=== PATIENT | female | born 1965 | race Caucasian/White ===

== ENCOUNTER → 2017-08-29 | Outpatient (CLI) | payer OTHER ==
--- NOTE | 2017-08-30 07:09 | US ---
EXAMINATION TYPE: US transvaginal DATE OF EXAM: 08/29/2017 COMPARISON: CLINICAL HISTORY: N83.20 UNSPECIFIED OVARIAN CYST, RIGHT SIDE. History of right ovarian cyst. Partia l hysterectomy in 2004. TECHNIQUE: Transvaginal (TV) Date of LMP: Partial hysterectomy EXAM MEASUREMENTS: Uterus: Surgically absent cm Endometrial Stripe: Surgically absent cm Right Ovary: 2.7 x 1.3 x 1.0 cm Left Ovary: 2.5 x 1.5 x 1.7 cm 1. Uterus: Surgically absent 2. Endometrium: Surgically absent 3. Right Ovary: Appears heterogenous, small cystic appearing lesion that appears to be pedunculated from ovarian tissue= 0.6 cm 4. Left Ovary: Appears heterogenous. Spectral, color and waveform doppler imaging shows good arterial and venous flow within the ovaries ; there is no evidence for ovarian torsion. 5. Bilateral Adnexa: wnl 6. Posterior cul-de-sac: no free fluid IMPRESSION: 1. Post hysterectomy. There appears to be somewhat heterogeneous echo pattern to both ovaries with a nonspecific finding. There is a 6 mm pedunculated lesion extending from the right ovary. Lesion too s mall to characterize. Consider follow-up in 6 weeks for resolution.
--- NOTE | 2017-08-30 13:18 | MM ---
Reason for exam: screening (asymptomatic). Last mammogram was performed 1 year and 2 months ago. History: Patient history of other cancer. Family history of breast cancer in sister at age 62 and breast cancer in paternal aunt. Benign excisional biopsy of the right breast, 2002. Physical Findings: A clinical breast exam by your physician is recommended on an annual basis and results should be correlated with mammographic findings. MG Screening Mammo w CAD Bilateral CC and MLO view(s) were taken. Prior study comparison: July 06, 2016, bilateral MG screening mammo w CAD. March 11, 2009, mammogram, performed at [facility]. There are scattered fibroglandular densities. Finding: There are typically benign spherical calcifications in the right breast. Previous mammotome biopsy in the right breast. There is a chronic nodularity in the right breast. No significant changes in finding since July 06, 2016 and March 11, 2009. ASSESSMENT: Benign, BI-RAD 2 RECOMMENDATION: Routine screening mammogram of both breasts in 1 year.
== END | disposition home or self-care (01) ==
LOC: RADUSWWP 15:38
PROVIDERS: ATTEND Family Medicine
DX: Z12.31 Encounter for screening mammogram for malignant neoplasm of breast (principal); N83.8 Other noninflammatory disorders of ovary, fallopian tube and broad ligament; Z90.710 Acquired absence of both cervix and uterus
CPT/HCPCS: 76830; G0202

== ENCOUNTER → 2017-10-07 | Outpatient (CLI) | payer OTHER ==
--- NOTE | 2017-10-07 16:53 | US ---
EXAMINATION TYPE: US transvaginal DATE OF EXAM: 10/07/2017 COMPARISON: 08/29/2017 CLINICAL HISTORY: 52-year-old female N83.201 Unspecified Ovarian Cyst Right Side. Intermittent RLQ pa in and with intercourse; follow up on right ovarian cyst at 0.6cm; hysterectomy TECHNIQUE: Transvaginal (TV) Date of LMP: Hysterectomy FINDINGS: Uterus: surgically absent. A couple cervical nabothian cysts are demonstrated, largest measuring 9 mm . Right Ovary: 1.9 x 1.0 x 1.0 cm Left Ovary: 2.2 x 1.5 x 1.4 cm Ovaries are small in size. The previously seen exophytic 6 mm lesion on the right is no longer identi fied. No evident adnexal abnormality or cul-de-sac free fluid. IMPRESSION: 1. Status post hysterectomy. A couple nabothian cysts remain measuring up to 9 mm. 2. Previously seen 6 mm lesion in the right ovary is no longer identified. Both ovaries are small sug gesting postmenopausal state.
== END | disposition home or self-care (01) ==
LOC: RADUSWWP 12:38
PROVIDERS: ATTEND Family Medicine
DX: N88.8 Other specified noninflammatory disorders of cervix uteri (principal); Z90.710 Acquired absence of both cervix and uterus
CPT/HCPCS: 76830

== ENCOUNTER 2018-06-16 12:24 | Emergency (ER) | payer OTHER ==
[2018-06-16 12:41] VITALS: TEMP 98.2
[2018-06-16] MEDS ORDERED: IPRATROPIUM-ALBUTEROL 3 ML NEB INHALATION STA (14:43)
--- NOTE | 2018-06-16 14:50 | ED ---
General Adult HPI - General Chief complaint: Upper Respiratory Infection Stated complaint: Chest tightness/congestion Time Seen by Provider: 06/16/18 12:40 Source: patient, RN notes reviewed Mode of arrival: ambulatory Limitations: no limitations - History of Present Illness Initial comments: This is a 53-year-old female presents emergency Department with a four-day history of cough and some facial tenderness. Patient states she has a lot of postnasal drip and the symptoms have not been getting any better. Patient denies any fever chills per patient denies any chest pain. The patient mentioned chest tightness to triage she stated she was just having some wheezing to me and it was typical sensation with wheezing. Patient states she does have a sore throat occasionally but that seems to get better during the day and worse at night. Patient denies any abdominal pain patient denies nausea vomiting diarrhea. Patient denies any leg swelling or calf pain. - Related Data Home Medications Medication Instructions Recorded Confirmed Baclofen [Lioresal] 20 mg PO TID 08/11/15 06/16/18 Furosemide [Lasix] 20 mg PO DAILY 06/16/18 06/16/18 Hydrocodone/Acetaminophen [[place] 1 tab PO Q6H PRN 06/16/18 06/16/18 10-325] Loratadine 10 mg PO HS 06/16/18 06/16/18 Naproxen 500 mg PO BID 06/16/18 06/16/18 busPIRone HCL [Buspar] 7.5 mg PO BID 06/16/18 06/16/18 Previous Rx's Medication Instructions Recorded Albuterol Inhaler [Ventolin Hfa 1 - 2 puff INHALATION Q6HR PRN #2 06/16/18 Inhaler] puff Azithromycin [Zithromax Tri-Jacky] 500 mg PO DAILY #3 tab 06/16/18 predniSONE 40 mg PO DAILY #8 tab 06/16/18 Allergies Allergy/AdvReac Type Severity Reaction Status Date / Time Penicillins Allergy Unknown Swelling Verified 06/16/18 12:41 ibuprofen [From Motrin] Allergy HEADACHE Verified 06/16/18 12:41 promethazine HCl Allergy FAMILY HX Verified 06/16/18 12:41 [From Phenergan] OF PROBLEMS WITH THIS MED. Review of Systems ROS Statement: Those systems with pertinent positive or pertinent negative responses have been documented in the HPI. ROS Other: All systems not noted in ROS Statement are negative. Past Medical History Past Medical History: Fibromyalgia, Osteoarthritis (OA) Additional Past Medical History / Comment(s): back pain, scoliosis, spinal stenosis, carpal tunnel, sciatica History of Any Multi-Drug Resistant Organisms: None Reported Past Surgical History: Section, Hysterectomy Additional Past Surgical History / Comment(s): tumor removed from knee Past Anesthesia/Blood Transfusion Reactions: No Reported Reaction, Family History of Problems w/ Anesthesia Additional Past Anesthesia/Blood Transfusion Reaction / Comment(s): DAUGHTER- PONV Past Psychological History: Anxiety, Depression Smoking Status: Current some day smoker Past Alcohol Use History: None Reported Past Drug Use History: Marijuana - Past Family History Mother Family Medical History: Deep Vein Thrombosis (DVT) Father Family Medical History: Cancer Additional Family Medical History / Comment(s): COLON CA Sister(s) Family Medical History: Deep Vein Thrombosis (DVT), Pulmonary Embolus Additional Family Medical History / Comment(s): SISTER #1 OF PULMONARY EMBOLI. SISTER # 2 HX OF DVT General Exam - General Exam Comments Initial Comments: GENERAL: Patient is well-developed and well-nourished. Patient is nontoxic and well- hydrated and is in mild distress. ENT: Neck is soft and supple. No significant lymphadenopathy is noted. Oropharynx is clear. Moist mucous membranes. Neck has full range of motion without eliciting any pain. No tenderness over the sinuses. EYES: The sclera were anicteric and conjunctiva were pink and moist. Extraocular movements were intact and pupils were equal round and reactive to light. Eyelids were unremarkable. PULMONARY: Patient has expiratory wheezing CARDIOVASCULAR: There is a regular rate and rhythm without any murmurs gallops or rubs. ABDOMEN: Soft and nontender with normal bowel sounds. No palpable organomegaly was noted. There is no palpable pulsatile mass. SKIN: Skin is clear with no lesions or rashes and otherwise unremarkable. NEUROLOGIC: Patient is alert and oriented x3. Cranial nerves II through XII are grossly intact. Motor and sensory are also intact. Normal speech, volume and content. Symmetrical smile. MUSCULOSKELETAL: Normal extremities with adequate strength and full range of motion. No lower extremity swelling or edema. No calf tenderness. LYMPHATICS: No significant lymphadenopathy is noted PSYCHIATRIC: Normal psychiatric evaluation. Limitations: no limitations Course Vital Signs 06/16/18 06/16/18 06/16/18 12:38 15:07 15:41 Temperature 98.2 F Pulse Rate 85 66 80 Respiratory 20 18 Rate Blood Pressure 159/72 154/90 O2 Sat by Pulse 98 95 Oximetry 06/16/18 15:48 Temperature Pulse Rate 88 Respiratory Rate Blood Pressure O2 Sat by Pulse Oximetry Disposition Clinical Impression: Acute bronchitis with bronchospasm Disposition: HOME SELF-CARE Condition: Good Instructions: Acute Bronchitis (ED), Bronchospasm (ED) Additional Instructions: Patient stopped smoking. Prescriptions: Albuterol Inhaler [Ventolin Hfa Inhaler] 1 - 2 puff INHALATION Q6HR PRN #2 puff PRN Reason: Difficulty breathing Azithromycin [Zithromax Tri-Jacky] 500 mg PO DAILY #3 tab predniSONE 40 mg PO DAILY #8 tab Is patient prescribed a controlled substance at d/c from ED?: No Referrals: Jesus Loredo DO [Primary Care Provider] - 1-2 days Time of Disposition: 15:35
[2018-06-16 15:08] VITALS: BP 154/90; RESP 18
[2018-06-16] MEDS ORDERED: methylPREDNISolone SOD SUCCI 125 MG/2 ML VIAL IM ONE (15:35)
--- NOTE | 2018-06-16 15:40 | XR ---
EXAMINATION TYPE: XR chest 2V DATE OF EXAM: 06/16/2018 COMPARISON: None HISTORY: 53-year-old female difficulty breathing and chest congestion TECHNIQUE: PA and lateral views FINDINGS: Heart normal size. Aorta and pulmonary vasculature are within normal limits. Anterior eventration rig ht hemidiaphragm. Mild diffuse interstitial prominence as a chronic appearance. No consolidation or p leural effusion. IMPRESSION: Interstitial prominence likely in part chronic. Correlate for possible bronchitis or asthma. Otherwis e, no acute process seen.
[2018-06-16 15:49] VITALS: PULSE 88
[2018-06-16] MEDS ORDERED: methylPREDNISolone SOD SUCCI 125 MG/2 ML VIAL IV STA (15:53)
== END 2018-06-16 16:07 | disposition home or self-care (01) ==
LOC: EC 12:24
DX: J20.9 Acute bronchitis, unspecified (principal); M79.7 Fibromyalgia; M19.90 Unspecified osteoarthritis, unspecified site; F41.9 Anxiety disorder, unspecified; F32.9 Major depressive disorder, single episode, unspecified; F17.200 Nicotine dependence, unspecified, uncomplicated; Z98.890 Other specified postprocedural states; Z79.1 Long term (current) use of non-steroidal anti-inflammatories (NSAID); Z79.899 Other long term (current) drug therapy; Z88.0 Allergy status to penicillin; Z88.6 Allergy status to analgesic agent; Z88.8 Allergy status to other drugs, medicaments and biological substances
CPT/HCPCS: 94640; 93005; 71046; 99283; 96374; J2930

== ENCOUNTER 2018-08-25 17:10 | Emergency (ER) | payer OTHER ==
[2018-08-25 17:30] VITALS: RESP 20
--- NOTE | 2018-08-25 19:19 | XR ---
EXAMINATION: XR chest 2V DATE AND TIME: 08/25/2018 7:07 PM CLINICAL INDICATION: cough TECHNIQUE: PA and lateral COMPARISON: June 16, 2018 FINDINGS: The lungs are clear. The pleural spaces are negative. The cardiac silhouette is not enlarged. The remainder of the mediastinal silhouette is unremarkable. The skeletal structures and soft tissues are negative for acute findings. IMPRESSION: NO ACUTE RADIOGRAPHIC PROCESS.
[2018-08-25] MEDS ORDERED: IPRATROPIUM-ALBUTEROL 3 ML NEB INHALATION STA ×2 (19:35→20:10)
--- NOTE | 2018-08-25 20:14 | ED ---
General Adult HPI - General Chief complaint: Upper Respiratory Infection Stated complaint: COUGH, BACK/SHOULDER BLADE PAIN Time Seen by Provider: 08/25/18 18:28 Source: patient, RN notes reviewed Mode of arrival: ambulatory Limitations: no limitations - History of Present Illness Initial comments: Patient 53-year-old female presents to the emergency room today with a chief complaint of cough congestion over the last month. Doesn't that she was seen here the emergency room diagnosed with bronchitis placed on Z-Jacky and steroids. States some improvement. Since has been increasingly to [facility] recently was given Z-Jacky again. States last day is today. States slightly cough congestion with positive sputum production. Denies any other complaints or symptoms. Patient denies any recent fever, chills, shortness of breath, chest pain, back pain, abdominal pain, nausea or vomiting, numbness or tingling, dysuria or hematuria, constipation or diarrhea, headaches or visual changes, or any other complaints. - Related Data Home Medications Medication Instructions Recorded Confirmed Baclofen [Lioresal] 20 mg PO TID 08/11/15 08/25/18 Furosemide [Lasix] 20 mg PO DAILY 06/16/18 08/25/18 Hydrocodone/Acetaminophen [[place] 1 tab PO Q6H PRN 06/16/18 08/25/18 10-325] Loratadine 10 mg PO HS 06/16/18 08/25/18 Naproxen 500 mg PO BID 06/16/18 08/25/18 busPIRone HCL [Buspar] 7.5 mg PO BID 06/16/18 08/25/18 Albuterol Inhaler [Ventolin Hfa 1 - 2 puff INHALATION Q6HR PRN 08/25/18 08/25/18 Inhaler] Fluticasone Nasal [place] [Flonase 1 spray EA NOSTRIL DAILY PRN 08/25/18 08/25/18 Nasal [place]] Previous Rx's Medication Instructions Recorded Albuterol Inhaler [Ventolin Hfa 1 - 2 puff INHALATION Q4-6H PRN #1 08/25/18 Inhaler] inhaler Albuterol Nebulized [Ventolin 2.5 mg INHALATION Q4H PRN 10 Days 08/25/18 Nebulized] nebu predniSONE 50 mg PO DAILY #5 tab 08/25/18 Allergies Allergy/AdvReac Type Severity Reaction Status Date / Time Penicillins Allergy Unknown Swelling Verified 08/25/18 18:45 ibuprofen [From Motrin] Allergy HEADACHE Verified 08/25/18 18:45 promethazine HCl Allergy FAMILY HX Verified 08/25/18 18:45 [From Phenergan] OF PROBLEMS WITH THIS MED. Review of Systems ROS Statement: Those systems with pertinent positive or pertinent negative responses have been documented in the HPI. ROS Other: All systems not noted in ROS Statement are negative. Past Medical History Past Medical History: Fibromyalgia, Osteoarthritis (OA) Additional Past Medical History / Comment(s): back pain, scoliosis, spinal stenosis, carpal tunnel, sciatica History of Any Multi-Drug Resistant Organisms: None Reported Past Surgical History: Section, Hysterectomy Additional Past Surgical History / Comment(s): tumor removed from knee Past Anesthesia/Blood Transfusion Reactions: No Reported Reaction, Family History of Problems w/ Anesthesia Additional Past Anesthesia/Blood Transfusion Reaction / Comment(s): DAUGHTER- PONV Past Psychological History: Anxiety, Depression Smoking Status: Current every day smoker Past Alcohol Use History: None Reported Past Drug Use History: Marijuana - Past Family History Mother Family Medical History: Deep Vein Thrombosis (DVT) Father Family Medical History: Cancer Additional Family Medical History / Comment(s): COLON CA Sister(s) Family Medical History: Deep Vein Thrombosis (DVT), Pulmonary Embolus Additional Family Medical History / Comment(s): SISTER #1 OF PULMONARY EMBOLI. SISTER # 2 HX OF DVT General Exam - General Exam Comments Initial Comments: General: The patient is awake and alert, in no distress, and does not appear acutely ill. Eye: Extra-ocular movements are intact. No nystagmus. There is normal conjunctiva bilaterally. No signs of icterus. Ears, nose, mouth and throat: There are moist mucous membranes and no oral lesions. Neck: The neck is supple, there is no tenderness or JVD. Cardiovascular: There is a regular rate and rhythm. No murmur, rub or gallop is appreciated. Respiratory: Patient does have bilateral expiratory wheeze. respirations are non-labored, breath sounds are equal. No stridor, rales, or rhonchi. Musculoskeletal: Normal ROM, no tenderness. Sensation intact. Strength 5/5. Pulses equal bilaterally 2+. Neurological: A&O x 3. CN II-XII intact, There are no obvious motor or sensory deficits. Coordination appears grossly intact. Speech is normal. Skin: Skin is warm and dry and no rashes or lesions are noted. Psychiatric: Cooperative, appropriate mood & affect, normal judgment. Limitations: no limitations Course Vital Signs 08/25/18 08/25/18 08/25/18 17:28 19:48 19:56 Temperature 98.2 F Pulse Rate 94 78 80 Respiratory 20 Rate Blood Pressure 159/88 O2 Sat by Pulse 96 Oximetry Medical Decision Making - Medical Decision Making Patient reexamined at the central no distress. Breathing sounds are improved from breathing treatments. Patient does admit to improvement. Chest x-rays negative for any sign of pneumonia. Patient was treated with a Z-Jacky. She will be given course of steroids. She does have access to a nebulizer machine is advised to continue his pain was discussed about smoking cessation. Patient is advised follow-up family doctor next 2 days return to emergency room if any symptoms worsen or for any other concerns. Disposition Clinical Impression: Acute bronchitis Disposition: HOME SELF-CARE Condition: Good Instructions: Acute Bronchitis (ED) Additional Instructions: Please use medication as discussed. Please follow-up with family doctor in the next 2 days of symptoms have not improved. Please return to emergency room if the symptoms increase or worsen or for any other concerns. Prescriptions: Albuterol Inhaler [Ventolin Hfa Inhaler] 1 - 2 puff INHALATION Q4-6H PRN #1 inhaler PRN Reason: Cough Albuterol Nebulized [Ventolin Nebulized] 2.5 mg INHALATION Q4H PRN 10 Days nebu PRN Reason: Cough predniSONE 50 mg PO DAILY #5 tab Is patient prescribed a controlled substance at d/c from ED?: No Referrals: Jesus Loredo DO [Primary Care Provider] - 1-2 days Time of Disposition: 20:13
[2018-08-25 20:58] VITALS: BP 152/87; PULSE 86; TEMP 98.3
== END 2018-08-25 20:53 | disposition home or self-care (01) ==
LOC: EC 17:10
DX: J20.9 Acute bronchitis, unspecified (principal); M79.7 Fibromyalgia; M19.90 Unspecified osteoarthritis, unspecified site; F41.9 Anxiety disorder, unspecified; F32.9 Major depressive disorder, single episode, unspecified; F17.200 Nicotine dependence, unspecified, uncomplicated; Z90.710 Acquired absence of both cervix and uterus; Z98.890 Other specified postprocedural states; Z79.1 Long term (current) use of non-steroidal anti-inflammatories (NSAID); Z79.899 Other long term (current) drug therapy; Z88.0 Allergy status to penicillin; Z88.6 Allergy status to analgesic agent; Z88.8 Allergy status to other drugs, medicaments and biological substances
CPT/HCPCS: 71046; 94640; 99283

== ENCOUNTER 2018-11-18 13:09 | Emergency (ER) | payer OTHER ==
[2018-11-18 13:21] VITALS: TEMP 98.3
--- NOTE | 2018-11-18 14:24 | ED ---
Extremity Problem HPI - General Chief complaint: Extremity Problem,Nontraumatic Stated complaint: Lt arm pain Time Seen by Provider: 11/18/18 13:30 Source: patient, RN notes reviewed, old records reviewed Mode of arrival: ambulatory Limitations: no limitations - History of Present Illness Initial comments: Patient is a 53 year old female, whom presents today with CC of left arm pain and swelling after donating plasma. She states that she noticed bruising in antecubital fossa and is concerned for a blood clot. Patient states no shortness of breath or chest pain. She reports swelling over upper arm as well from her IV site. - Related Data Home Medications Medication Instructions Recorded Confirmed Baclofen [Lioresal] 20 mg PO TID 08/11/15 11/18/18 Furosemide [Lasix] 20 mg PO DAILY PRN 06/16/18 11/18/18 Hydrocodone/Acetaminophen [[place] 1 tab PO Q6H PRN 06/16/18 11/18/18 10-325] Loratadine 10 mg PO HS 06/16/18 11/18/18 Naproxen 500 mg PO BID 06/16/18 11/18/18 Omeprazole 20 mg PO DAILY 08/25/18 11/18/18 Potassium Chloride 8 meq PO DAILY PRN 08/25/18 11/18/18 Pramipexole [Mirapex] 0.75 mg PO BID 08/25/18 11/18/18 busPIRone HCl [Buspar] 10 mg PO BID 11/18/18 11/18/18 Previous Rx's Medication Instructions Recorded Albuterol Inhaler [Ventolin Hfa 1 - 2 puff INHALATION Q4-6H PRN #1 08/25/18 Inhaler] inhaler Allergies Allergy/AdvReac Type Severity Reaction Status Date / Time Penicillins Allergy Unknown Swelling Verified 11/18/18 13:54 ibuprofen [From Motrin] Allergy HEADACHE Verified 11/18/18 13:54 promethazine HCl Allergy FAMILY HX Verified 11/18/18 13:54 [From Phenergan] OF PROBLEMS WITH THIS MED. Review of Systems ROS Statement: Those systems with pertinent positive or pertinent negative responses have been documented in the HPI. ROS Other: All systems not noted in ROS Statement are negative. Past Medical History Past Medical History: Fibromyalgia, Osteoarthritis (OA) Additional Past Medical History / Comment(s): back pain, scoliosis, spinal stenosis, carpal tunnel, sciatica History of Any Multi-Drug Resistant Organisms: None Reported Past Surgical History: Section, Hysterectomy Additional Past Surgical History / Comment(s): tumor removed from knee Past Anesthesia/Blood Transfusion Reactions: No Reported Reaction, Family History of Problems w/ Anesthesia Additional Past Anesthesia/Blood Transfusion Reaction / Comment(s): DAUGHTER- PONV Past Psychological History: Anxiety, Depression Smoking Status: Current every day smoker Past Alcohol Use History: None Reported Past Drug Use History: Marijuana - Past Family History Mother Family Medical History: Deep Vein Thrombosis (DVT) Father Family Medical History: Cancer Additional Family Medical History / Comment(s): COLON CA Sister(s) Family Medical History: Deep Vein Thrombosis (DVT), Pulmonary Embolus Additional Family Medical History / Comment(s): SISTER #1 OF PULMONARY EMBOLI. SISTER # 2 HX OF DVT General Exam - General Exam Comments Initial Comments: Well appearing 53 year old female, no distress. Limitations: no limitations General appearance: alert, in no apparent distress Head exam: Present: atraumatic, normocephalic, normal inspection Eye exam: Present: normal appearance, PERRL, EOMI. Absent: scleral icterus, conjunctival injection, periorbital swelling ENT exam: Present: normal exam, mucous membranes moist Neck exam: Present: normal inspection. Absent: tenderness, meningismus, lymphadenopathy Respiratory exam: Present: normal lung sounds bilaterally. Absent: respiratory distress, wheezes, rales, rhonchi, stridor Cardiovascular Exam: Present: regular rate, normal rhythm, normal heart sounds. Absent: systolic murmur, diastolic murmur, rubs, gallop, clicks GI/Abdominal exam: Present: soft, normal bowel sounds. Absent: distended, tenderness, guarding, rebound, rigid Extremities exam: Present: normal inspection, full ROM, normal capillary refill. Absent: tenderness, pedal edema, joint swelling, calf tenderness Left Upper Arm exam: Present: normal inspection, full ROM Elbow exam: Present: normal inspection, full ROM, swelling (over antecubital fossa. ) Hand Wrist exam: Present: normal inspection, full ROM Back exam: Present: normal inspection Neurological exam: Present: alert, oriented X3, CN II-XII intact Psychiatric exam: Present: normal affect, normal mood Skin exam: Present: warm, dry, intact, normal color. Absent: rash Course Vital Signs 11/18/18 11/18/18 13:19 14:35 Temperature 98.3 F Pulse Rate 79 67 Respiratory 20 18 Rate Blood Pressure 164/89 155/72 O2 Sat by Pulse 97 96 Oximetry Medical Decision Making - Medical Decision Making Patient is a 53 year old female with CC of left arm pain and swelling after donating plasma. She has evidence of IV infiltrate, and bruising. She is concerned for DVT. US is negative for DVT. Discussed not donating plasma for awhile and discussed close PCP follow up. - Radiology Data Radiology results: report reviewed Doppler US is negative for DVT. Disposition Clinical Impression: Contusion of left arm, IV infiltrate Disposition: HOME SELF-CARE Condition: Good Instructions: IV Infiltration (ED) Additional Instructions: Patient should take Motrin Tylenol for pain. Follow-up with primary care physician. Return to the emergency department if any alarming signs or symptoms occur. Alternate between warm compresses and ice over the swollen area. Is patient prescribed a controlled substance at d/c from ED?: No Referrals: Jesus Loredo DO [Primary Care Provider] - 1-2 days Time of Disposition: 14:59
[2018-11-18 14:37] VITALS: BP 155/72; PULSE 67; RESP 18
--- NOTE | 2018-11-18 14:40 | US ---
EXAMINATION TYPE: US venous doppler duplex UE LT DATE OF EXAM: 11/18/2018 COMPARISON: NONE CLINICAL HISTORY: 53-year-old female Pain. Pt states left arm pain and bruising within antecubital fo ssa after giving plasma TECHNIQUE: Grayscale, color doppler, spectral doppler imaging performed of the deep veins of the lef t upper extremity. SIDE PERFORMED: LEFT FINDINGS: There is normal flow, compressibility and vascular waveforms. Left Arm: Negative for DVT In addition to the deep veins, the paired radial and ulnar veins as well as the superficial cephalic and basilic veins were interrogated. IMPRESSION: No evidence for DVT within the left upper extremity.
== END 2018-11-18 15:14 | disposition home or self-care (01) ==
LOC: EC 13:09
DX: S40.022A Contusion of left upper arm, initial encounter (principal); M79.7 Fibromyalgia; M19.90 Unspecified osteoarthritis, unspecified site; F41.9 Anxiety disorder, unspecified; F32.9 Major depressive disorder, single episode, unspecified; F17.200 Nicotine dependence, unspecified, uncomplicated; Z79.1 Long term (current) use of non-steroidal anti-inflammatories (NSAID); Z79.899 Other long term (current) drug therapy; Z88.0 Allergy status to penicillin; Z88.6 Allergy status to analgesic agent; Z88.8 Allergy status to other drugs, medicaments and biological substances; X58.XXXA Exposure to other specified factors, initial encounter
CPT/HCPCS: 99284

== ENCOUNTER → 2019-02-14 | Outpatient (CLI) | payer OTHER ==
--- NOTE | 2019-02-14 14:47 | XR ---
EXAMINATION TYPE: XR knee complete RT DATE OF EXAM: 02/14/2019 COMPARISON: None HISTORY: Knee pain TECHNIQUE: Three-view right knee FINDINGS: Minimal narrowing of the medial compartment joint space present. Medial tibial plateau spur ring is present. Posterior patellar spurring is present. There is narrowing of the patellofemoral jimy nt space. There is some spurring with preservation of the joint space at the lateral compartment righ t knee. No acute fractures are evident. Superficial soft tissues are unremarkable. IMPRESSION: 1. Mild degenerative changes right knee.
--- NOTE | 2019-02-14 15:05 | XR ---
EXAMINATION TYPE: XR shoulder complete RT DATE OF EXAM: 02/14/2019 COMPARISON: NONE HISTORY: Pain TECHNIQUE: Right shoulder examined in 3 views FINDINGS: The humeral head articulates with the glenoid. The acromio-clavicular junction is normal. No acute fractures or dislocations are evident. A follow up study can be performed 7-10 days from acute trauma for continued pain. IMPRESSION: 1. Normal three-view right Shoulder
== END ==
LOC: RADXRMAIN 11:42
PROVIDERS: ATTEND Physical Medicine & Rehabilitation
DX: M17.11 Unilateral primary osteoarthritis, right knee (principal); M25.511 Pain in right shoulder

== ENCOUNTER → 2019-06-04 | Outpatient (CLI) | payer OTHER ==
--- NOTE | 2019-06-05 12:43 | MR ---
EXAMINATION TYPE: MR knee RT wo con DATE OF EXAM: 06/04/2019 COMPARISON: X-rays dated 02/14/2019 HISTORY: Rt knee pain, anterior/medial x 1 yr TECHNIQUE: Multiplanar, multisequence imaging of the right knee is performed without IV contrast. FINDINGS: MEDIAL MENISCUS: There is a small radial tear of the free edge of the posterior horn of the medial me niscus LATERAL MENISCUS: There is a radial tear of the posterior horn of the lateral meniscus superimposed u lori meniscal degeneration. CRUCIATE LIGAMENTS: The anterior and posterior cruciate ligaments are intact. There is a 0.7 cm gangl ion cyst along the ventral distal fibers of the anterior cruciate ligament. Ganglion cyst is also see n along the ligament of wris[place] and ligament of rodríguez. COLLATERAL LIGAMENTS: The medial collateral ligament and lateral collateral ligament complex are inta ct and unremarkable. EXTENSOR MECHANISM: Visualized quadriceps and patellar tendons are intact. EFFUSION: There is a small suprapatellar joint effusion with internal complexity indicative of synov itis. POPLITEAL CYST: No popliteal/osborn cyst. TRICOMPARTMENT SPACES: There are moderate tricompartmental osteophytes and very minimal patellofemora l compartment joint space narrowing. CARTILAGE: There are partial-thickness defects of the weightbearing surface of the medial compartment measuring 5 mm and 2 mm. There is overall signal heterogeneity of both the lateral and medial compar tment cartilage with focal fissuring of the anterior surface of the lateral compartment. Partial-thic kness defect of the trochlear cartilage measures 1.3 cm. There is full-thickness defect of the latera l facet and patellar apex measuring 1.2 cm. There is some underlying abnormal bone marrow signal of t he lateral facet of the patella indicative of early subchondral cyst formation is no pronounced hypoi ntensity on T1 is seen to suggest bone marrow edema. BONE MARROW SIGNAL: No focal abnormal marrow signal is appreciated. OTHER: Nonspecific prepatellar and infrapatellar mild subcutaneous edema seen. IMPRESSION: 1. Small radial tear of the posterior horn of the lateral meniscus superimposed upon the meniscal deg eneration. 2. Radial tear of the free edge of the posterior horn of the medial meniscus. 3. Small suprapatellar joint effusion with internal complexity indicating synovitis. 4. 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
== END | disposition home or self-care (01) ==
LOC: RADMRIMAIN 11:37
PROVIDERS: ATTEND Family Medicine
DX: S83.281A Other tear of lateral meniscus, current injury, right knee, initial encounter (principal); S83.241A Other tear of medial meniscus, current injury, right knee, initial encounter; M17.11 Unilateral primary osteoarthritis, right knee; M25.461 Effusion, right knee; M25.861 Other specified joint disorders, right knee

== ENCOUNTER → 2020-10-03 | Outpatient (CLI) | payer OTHER ==
--- NOTE | 2020-10-04 08:34 | MM ---
Reason for exam: additional evaluation requested from prior study. Last mammogram was performed 3 years and 1 month ago. History: Patient history of other cancer. Family history of breast cancer in sister at age 62 and breast cancer in paternal aunt. Benign excisional biopsy of the right breast, 2002. Took hormonal contraceptives for 3 years beginning at age 21. Physical Findings: Nurse did not find any significant physical abnormalities on exam. MG Diagnostic Mammo w CAD JACQUES Bilateral CC and MLO view(s) were taken. Prior study comparison: August 29, 2017, bilateral MG screening mammo w CAD. July 06, 2016, bilateral MG screening mammo w CAD. There are scattered fibroglandular densities. There are benign appearing round calcifications in the right breast. There is chronic nodularity in the right breast. No significant new findings when compared with previous films. These results were verbally communicated with the patient and result sheet given to the patient on 10/03/20. ASSESSMENT: Benign, BI-RAD 2 RECOMMENDATION: Routine screening mammogram of both breasts in 1 year.
== END | disposition home or self-care (01) ==
LOC: RADMAMWWP 14:49
PROVIDERS: ATTEND Family Medicine
DX: N63.10 Unspecified lump in the right breast, unspecified quadrant (principal)
CPT/HCPCS: 77066

== ENCOUNTER → 2021-03-09 | Outpatient (CLI) | payer OTHER ==
--- NOTE | 2021-03-09 09:04 | XR ---
EXAMINATION TYPE: XR cervical spine limited DATE OF EXAM: 03/09/2021 COMPARISON: NONE HISTORY: Pain TECHNIQUE: Four views are submitted. FINDINGS: The odontoid is intact. There are no compression deformities. The prevertebral soft tissue structur es are within normal limits. Severe degenerative disc disease C5-6 with hypertrophic spurring. Moder ate changes at C6-C7. Multilevel facet arthropathy. IMPRESSION: 1. Multilevel degenerative disc disease with facet arthropathy most marked at C5-C6. 2. There is mild prominence in the left suprahilar region which could just be positional, however, re commend frontal view of the chest for further evaluation.
--- NOTE | 2021-03-09 12:02 | CT ---
EXAMINATION TYPE: CT abdomen pelvis w con DATE OF EXAM: 03/09/2021 HISTORY: LUQ to periumbilical swelling CT DLP: 2034.6mGycm Automated Exposure Control for Dose Reduction was Utilized. CONTRAST: CT scan of the abdomen and pelvis is performed with oral and with IV Contrast, patient injected with 100 mL of Isovue 300. COMPARISON: None. FINDINGS: LUNG BASES: No significant abnormality is appreciated. LIVER/GB: No significant abnormality is appreciated. PANCREAS: No significant abnormality is seen. SPLEEN: Splenule noted inferior splenic hilum on image 66. ADRENALS: No significant abnormality is seen. KIDNEYS: Symmetric cortical medullary uptake and excretion without hydronephrosis seen bilaterally. BOWEL: Oral contrast reaches level of right colon. No suspicious small or large bowel dilatation. Nor mal appearing appendix from cecum in the right lower quadrant. Slightly suboptimal evaluation of annemarie l due to poor contrast opacification of jejunal loops in the left upper to mid abdomen is entire colo n. Few scattered colonic diverticula greatest within sigmoid colon. No CT evidence for acute divertic ulitis. UTERUS/ADNEXA: Uterus is surgically absent. Remnant ovaries are not enlarged. LYMPH NODES: No greater than 1cm abdominal or pelvic lymph nodes are appreciated. OSSEOUS STRUCTURES: Levoconvex scoliotic curvature centered at L2-L3 level. Mild to moderate disc spa ce narrowing lower lumbar spine. Facet arthropathy lower lumbar levels. OTHER: No significant additional abnormality is seen. IMPRESSION: No intra-abdominal ascites. No significant acute finding is seen to account for patient's clinical symptoms.
== END | disposition home or self-care (01) ==
LOC: RADCTMAIN 08:35
PROVIDERS: ATTEND Family Medicine
DX: M50.322 Other cervical disc degeneration at C5-C6 level (principal); M47.812 Spondylosis without myelopathy or radiculopathy, cervical region; R19.00 Intra-abdominal and pelvic swelling, mass and lump, unspecified site
CPT/HCPCS: 72040; 74177; Q9967

== ENCOUNTER → 2021-04-06 | Outpatient (CLI) | payer OTHER ==
--- NOTE | 2021-04-06 14:43 | XR ---
EXAMINATION TYPE: XR chest 2V DATE OF EXAM: 04/06/2021 COMPARISON: 08/25/2018 HISTORY: Abnormal finding on prior cervical spine x-ray TECHNIQUE: Frontal and lateral views of the chest are obtained. FINDINGS: Heart size is within normal limits. Low lung volumes. No focal consolidation, pleural effu radha or pneumothorax. The previously described region on the prior cervical spine radiographs of mild left suprahilar prominence is not well appreciated on this study. The left suprahilar region is stab le since prior chest x-ray 08/25/2018. IMPRESSION: 1. No acute pulmonary disease. 2. The left suprahilar region appears stable since prior exam 08/25/2018.
== END | disposition home or self-care (01) ==
LOC: RADXRMAIN 13:37
PROVIDERS: ATTEND Family Medicine
DX: R93.89 Abnormal findings on diagnostic imaging of other specified body structures (principal)
CPT/HCPCS: 71046

== ENCOUNTER → 2021-08-03 | Outpatient (CLI) | payer OTHER | END | disposition home or self-care (01) | LOC: LABWHC1 12:58 | PROVIDERS: ATTEND Psychiatry & Neurology Neurology | DX: I49.9 Cardiac arrhythmia, unspecified (principal) | CPT/HCPCS: 36415; 93005 ==

== ENCOUNTER → 2024-04-09 | Outpatient (CLI) | payer OTHER ==
--- NOTE | 2024-04-09 20:28 | MM ---
Reason for Exam: Screening (asymptomatic). Last mammogram was performed 3 year(s) and 6 month(s) ago. Patient History: Menarche at age 14. First Full-Term at age 21. Hysterectomy at age 31. Other cancer. Hormonal Contraceptives for 3 years from age 21 until age 24. 2003, Benign Excisional Biopsy on the right side. Paternal aunt had breast cancer. Sister had breast cancer, age 62. Risk Values: Marcela 5 year model risk: 2.9%. NCI Lifetime model risk: 16.9%. Prior Study Comparison: 07/06/2016 Bilateral Screening Mammogram, [facility]. 08/29/2017 Bilateral Screening Mammogram, [facility]. 10/03/2020 Bilateral Diagnostic Mammogram, [facility]. Tissue Density: There are scattered areas of fibroglandular density. Findings: Analyzed By CAD. Chronic nodularity right breast. Benign oil cyst calcifications on the right. There is no suspicious group of microcalcifications or new suspicious mass in either breast. Overall Assessment: Benign, BI-RAD 2 Management: Screening Mammogram of both breasts in 1 year. . Patient should continue monthly self-breast exams. A clinical breast exam by your physician is recommended on an annual basis. This exam should not preclude additional follow-up of suspicious palpable abnormalities. Note on Marcela scores and lifetime risk: 1. A Marcela score greater than 3% is considered moderate risk. If this is the case, consider specialist referral to assess eligibility for a risk reducing agent. 2. If overall lifetime risk for the development of breast cancer is 20% or higher, the patient may qualify for future screening with alternating mammogram and breast MRI. Electronically signed and approved by: Molly Stovall M.D. Radiologist
== END | disposition home or self-care (01) ==
LOC: RADMAMWWP 10:02
PROVIDERS: ATTEND Family Medicine
DX: Z12.31 Encounter for screening mammogram for malignant neoplasm of breast (principal); Z80.3 Family history of malignant neoplasm of breast
CPT/HCPCS: 77067